=== PATIENT | female | born 1985 | race African-American/Black ===

== ENCOUNTER 2016-06-17 13:20 | Emergency (ER) | payer OTHER ==
[~2016-06-17 13:20] MED LIST: ALBUTEROL HFA INH; ALBUTEROL17 GM INH; AMOXICILLIN; AUGMENTIN875 M1 PO; BACTRIM DS TABL1 TA1 PO; BENZONATATE PO; CETIRIZINE HCL10 MG PO; DELTASONE20 MG PO; DIFLUCAN PO; ERYTHROMYCIN O3.5 GM OD; FLAGYL PO; FLEXERIL10 MG PO; METRONIDAZOLE PO; MOTION RELIEF25 MG PO; MOTRIN600 M1 PO; NO MEDICATIONS; PHENTERMINE; PREDNISONE PO; PREDNISONE50 MG; PRENATAL1 TA1 PO; PROMETHAZINE D118 ML PO; PYRIDIUM100 MG PO; ROBAXIN500 MG PO; TAMIFLU75 M1 PO; TESSALON PERLE100 M1 PO
[2016-06-17 13:43] LABS: URINE SOURCE CLEAN CATCH
[2016-06-17 13:45] LABS: URINE APPEARANCE CLOUDY; URINE BILIRUBIN NEG (NEG); URINE BLOOD 3+ (NEG); URINE COLOR YELLOW; URINE GLUCOSE NEG (NORM); URINE KETONE NEG (NEG); URINE LEUKOCYTE ESTERASE 1+ (NEG); URINE NITRATE NEG (NEG); URINE PH 5.5 (5-8); URINE PROTEIN 2+ (NEG); URINE SPECIFIC GRAVITY 1.025 (1.003-1.035); URINE UROBILINOGEN 0.2 MG/DL (NORM)
[2016-06-17 13:51] LABS: MICRO INDICATED? YES
[2016-06-17 13:53] LABS: CULTURE INDICATED? YES; URINE BACTERIA 1+ (NEG); URINE RBC 100-200 /[HPF] (0-2); URINE WBC 100-200 /[HPF] (0-5)
== END 2016-06-17 14:12 | disposition home or self-care (01) ==
LOC: SED 13:20
PROVIDERS: Nurse Practitioner
DX: N30.01 Acute cystitis with hematuria (principal); F31.9 Bipolar disorder, unspecified; Z98.890 Other specified postprocedural states
CPT/HCPCS: 81003; 84703; 87086; 87088; 87186; 99283

== ENCOUNTER 2016-07-20 23:38 | Emergency (ER) | payer OTHER ==
--- NOTE | ~2016-07-20 | US61 ---
[facility] A Service of [facility] / [facility] RADIOLOGY TEXT RESULTS PATIENT: SOPHIA BOWLING LOCATION: SED : 87 UNIT #: [id number] AGE: [address]: Librado Ayers DO SEX: F ORDER DR: [id number] [address] [address] [id number] E MR#: [id number] Acc #: [id number] NAME: SOPHIA BOWLING : 1985 SEX: F STUDY DATE/TIME: 07/21/2016 0056 UNIT: SED ROOM: STUDY DESCRIPTION: US /Mat <14Wk / Attending Physician: Librado Ayers D.O. Ordering Physician: Librado Ayers D.O. Primary Care Physician: [facility], [facility]. MEDICAL IMAGING REPORT This report is preliminary unless electronic signature is present. EXAM Pelvic ultrasound, 07/21 at 0056 hours. INDICATION Abdominal pain for 11 hours, improving over time. Patient is with a beta HCG value of 7442 million international units per mL. FINDINGS Transabdominal and transvaginal imaging is performed of the pelvis in multiple planes. Transvaginal imaging performed for better evaluation of the uterine contents and adnexa. There is a probable very early gestational sac within the uterus. Mean sac diameter gives an estimated age of less than 7 weeks. Gestational age is probably closer to 5 weeks. These measurements may not be entirely accurate. Both ovaries show perfusion by Doppler. There is a simple cyst on the right ovary measuring up to 3.7 cm. IMPRESSION 1. Both ovaries show perfusion by Doppler. There is a simple right ovarian cyst measuring 3.7 cm. 2. There does appear to be a very small intrauterine gestational sac. The sac measurements are not entirely accurate as far as gestational age calculation. However, it appears to be less than 7 weeks and is probably closer to 5 weeks gestational age. Obstetrical follow up recommended. Dictated by... Thang De La Fuente Jr., M.D. THIS IS AN ELECTRONICALLY VERIFIED REPORT [facility] A Service of [facility] RADIOLOGY TEXT RESULTS PATIENT: SOPHIA BOWLING LOCATION: SED : [birth year] UNIT #: [id number] AGE: [address]: Librado Ayers DO SEX: F ORDER DR: Thang De La Fuente Jr., M.D. at 07/21/2016 12:38 PM KARAN/ivana TD: 07/21/2016 09:30 JOB #: [id number] MEDICAL IMAGING REPORT Page 1 of 1
[2016-07-20 23:56] LABS: URINE SOURCE CLEAN CATCH
[2016-07-20 23:58] LABS: URINE APPEARANCE CLEAR; URINE BILIRUBIN NEG (NEG); URINE BLOOD NEG (NEG); URINE COLOR YELLOW; URINE GLUCOSE NEG (NORM); URINE KETONE NEG (NEG); URINE LEUKOCYTE ESTERASE NEG (NEG); URINE NITRATE NEG (NEG); URINE PROTEIN NEG (NEG); URINE UROBILINOGEN 0.2 MG/DL (NORM)
[2016-07-20 23:59] LABS: MICRO INDICATED? NO
[2016-07-21] LABS: BASOPHIL# 0.1 X10e3 (0-0.3); BASOPHIL% 0.8 % (0-2.5); DIFF IND NO; EOSINOPHIL# 0.1 X10e3 (0-0.7); EOSINOPHIL% 0.8 % (0.0-7.0); HEMATOCRIT 41.2 % (35.0-45.0); HEMOGLOBIN 13.9 gm/dL (12.0-16.0); LYMPHOCYTE% 15.1 % (17.0-45.0); MEAN CORPUSCULAR HEMOGLOBIN 29.7 PG (28-34); MEAN CORPUSCULAR HGB CONC 33.7 g/dL (30-36); MEAN PLATELET VOLUME 8.5 FL (6.5-11.5); MONOCYTE# 0.5 X10e3 (0-1.0); MONOCYTE% 7.1 % (3.0-12.0); NEUTROPHIL# 5.2 X10e3 (1.5-7.1); NEUTROPHIL% 76.2 % (40-75); PLATELET COUNT 203 X10e3 (140-420); RED BLOOD COUNT 4.69 X10e (3.90-5.30); RED CELL DISTRIBUTION WIDTH 14.1 % (11.0-15.5); WHITE BLOOD COUNT 6.8 X10e3 (4.0-10.5)
[2016-07-21 00:15] LABS: ALBUMIN SERUM 4.2 g/dL (3.5-5.0); BILIRUBIN,TOTAL 0.6 mg/dL (0.2-2.0); BUN/CREATININE RATIO 14.28; CALCIUM SERUM 8.8 mg/dL (8.4-10.2); CREATININE SERUM 0.7 mg/dL (0.6-1.4); GLOM FILT RATE Estimated 135.7 mL/min (>60); POTASSIUM 3.6 mmol/L (3.5-5.1); PROTEIN TOTAL SERUM 7.2 g/dL (6.0-8.3)
== END 2016-07-21 03:22 | disposition home or self-care (01) ==
LOC: SED 23:38
PROVIDERS: Physician Assistant
DX: O99.89 Other specified diseases and conditions complicating pregnancy, childbirth and the puerperium (principal); R10.2 Pelvic and perineal pain; Z3A.01 Less than 8 weeks gestation of pregnancy
CPT/HCPCS: 36415; 76801; 76817; 80053; 81003; 83690; 84702; 84703; 85025; 96360; 99284

== ENCOUNTER 2016-09-19 21:20 | Emergency (ER) | payer OTHER ==
[2016-09-19] MEDS ORDERED: PRENATAL ONE T1 EACH PO (21:34)
[2016-09-19 23:25] LABS: URINE SOURCE CLEAN CATCH
[2016-09-19 23:28] LABS: BASOPHIL% 0.4 % (0-2.5); EOSINOPHIL# 0.1 X10e3 (0-0.7); EOSINOPHIL% 1.7 % (0.0-7.0); HEMATOCRIT 42.2 % (35.0-45.0); HEMOGLOBIN 14.4 gm/dL (12.0-16.0); LYMPHOCYTE# 1.3 X10e3 (1.0-3.5); LYMPHOCYTE% 14.6 % (17.0-45.0); MEAN CELL VOLUME 87.4 FL (83-96); MEAN CORPUSCULAR HEMOGLOBIN 29.7 PG (28-34); MEAN PLATELET VOLUME 8.4 FL (6.5-11.5); MONOCYTE# 0.4 X10e3 (0-1.0); MONOCYTE% 4.3 % (3.0-12.0); NEUTROPHIL# 6.9 X10e3 (1.5-7.1); PLATELET COUNT 195 X10e3 (140-420); RED BLOOD COUNT 4.83 X10e (3.90-5.30); RED CELL DISTRIBUTION WIDTH 14.5 % (11.0-15.5); URINE APPEARANCE CLEAR; URINE BILIRUBIN NEG (NEG); URINE BLOOD NEG (NEG); URINE COLOR YELLOW; URINE GLUCOSE NEG (NORM); URINE KETONE NEG (NEG); URINE LEUKOCYTE ESTERASE NEG (NEG); URINE NITRATE NEG (NEG); URINE PROTEIN NEG (NEG); URINE SPECIFIC GRAVITY 1.025 (1.003-1.035); URINE UROBILINOGEN 0.2 MG/DL (NORM); WHITE BLOOD COUNT 8.7 X10e3 (4.0-10.5)
[2016-09-19 23:30] LABS: DIFF IND NO; MICRO INDICATED? NO
[2016-09-19 23:46] LABS: CALCIUM SERUM 8.7 mg/dL (8.4-10.2); CREATININE SERUM 0.6 mg/dL (0.6-1.4); GLOM FILT RATE Estimated 142.8 mL/min (>60); POTASSIUM 3.4 mmol/L (3.5-5.1)
== END 2016-09-20 00:34 | disposition home or self-care (01) ==
LOC: SED 21:20
PROVIDERS: Emergency Medicine
DX: R11.2 Nausea with vomiting, unspecified (principal); R19.7 Diarrhea, unspecified; F31.9 Bipolar disorder, unspecified
CPT/HCPCS: 36415; 80048; 81003; 85025; 96361; 96374; 99284; J2765

== ENCOUNTER 2016-11-05 11:06 | Emergency (ER) | payer OTHER ==
[~2016-11-05 11:06] MED LIST changes: +PRENATAL ONE T1 EACH PO
[2016-11-05 13:14] LABS: BASOPHIL% 0.6 % (0-2.5); EOSINOPHIL# 0.1 X10e3 (0-0.7); EOSINOPHIL% 1.6 % (0.0-7.0); HEMATOCRIT 36.8 % (35.0-45.0); HEMOGLOBIN 12.5 gm/dL (12.0-16.0); LYMPHOCYTE# 1.8 X10e3 (1.0-3.5); LYMPHOCYTE% 21.5 % (17.0-45.0); MEAN CELL VOLUME 87.3 FL (83-96); MEAN CORPUSCULAR HEMOGLOBIN 29.6 PG (28-34); MEAN CORPUSCULAR HGB CONC 33.9 g/dL (30-36); MONOCYTE# 0.6 X10e3 (0-1.0); MONOCYTE% 7.3 % (3.0-12.0); NEUTROPHIL# 5.7 X10e3 (1.5-7.1); PLATELET COUNT 186 X10e3 (140-420); RED BLOOD COUNT 4.21 X10e (3.90-5.30); RED CELL DISTRIBUTION WIDTH 14.5 % (11.0-15.5); WHITE BLOOD COUNT 8.2 X10e3 (4.0-10.5)
[2016-11-05 13:26] LABS: DIFF IND NO
[2016-11-05 13:26] LABS: URINE APPEARANCE CLEAR; URINE BILIRUBIN NEG (NEG); URINE BLOOD 2+ (NEG); URINE COLOR YELLOW; URINE GLUCOSE NEG (NORM); URINE KETONE TRACE (NEG); URINE LEUKOCYTE ESTERASE TRACE (NEG); URINE NITRATE NEG (NEG); URINE PROTEIN NEG (NEG); URINE SOURCE CLEAN CATCH; URINE SPECIFIC GRAVITY 1.025 (1.003-1.035)
[2016-11-05 13:28] LABS: MICRO INDICATED? YES
[2016-11-05 13:33] LABS: CULTURE INDICATED? YES; URINE BACTERIA 1+ (NEG); URINE RBC 0-2 /[HPF] (0-2); URINE SQUAMOUS EPITHELIAL CELL OCCAS /[HPF]; URINE WBC 0-2 /[HPF] (0-5)
== END 2016-11-05 14:09 | disposition home or self-care (01) ==
LOC: SED 11:06
PROVIDERS: Emergency Medicine
DX: O46.92 Antepartum hemorrhage, unspecified, second trimester (principal); O23.42 Unspecified infection of urinary tract in pregnancy, second trimester; Z79.899 Other long term (current) drug therapy; Z3A.20 20 weeks gestation of pregnancy
CPT/HCPCS: 36415; 81003; 85025; 87086; 99284